=== PATIENT | male | born 2000 ===

== ENCOUNTER → 2021-12-16 | Outpatient (CLI) | payer OTHER ==
--- NOTE | 2021-12-17 15:59 | RAD ---
US EXT NON VASC RIGHT History: RT GROIN PAIN/LUMP X SEVERAL MONTHS Comparison: None. Technique: Sonographic examination of the right groin. Findings: In the area of concern in the right groin there is a 2.9 x 0.9 x 1.2 cm ovoid anechoic cystic structu re. No color Doppler blood flow is identified within this collection. A connection to the peritoneum is not identified. No hernias identified with Valsalva maneuver. Impression: 1. Anechoic cystic structure in the area of concern of the right groin measuring up to 2.9 cm of unc ertain etiology. This may represent lymphocele or seroma in the setting of prior surgery. A connectio n to the peritoneum to suggest trapped peritoneal fluid within the hernia sac is not demonstrated how ever not completely excluded. Electronically signed by: Estuardo Maguire MD (12/17/2021 9:47 AM) [id number]
== END ==
LOC: US 16:03
PROVIDERS: ATTEND Surgery
DX: R19.09 Other intra-abdominal and pelvic swelling, mass and lump (principal)
CPT/HCPCS: 76881